=== PATIENT | female | born 1945 | race Caucasian/White ===

== ENCOUNTER 2017-06-11 12:17 | Emergency (ER) | payer OTHER ==
[~2017-06-11] VITALS: Wt 55.6 kg
[~2017-06-11 12:17] MED LIST: ALPR0.254; AMLO-145; ATEN50TA; BENA20TA48; FLUT1DIS21; LEVA15HF6; P EP; SERT-165
--- NOTE | 2017-06-11 15:16 | ERD ---
ER Documentation Chief Complaint Chief Complaint DIZZINESS, VOMITING, NO ABD PAIN, NO HEADACHE, NO CHEST PAIN HPI 71-year-old female, with history of hypertension, presents to the emergency department complaining of 2 days with elevated blood pressure associated with progressive onset of dizziness, nausea and vomiting the blood pressure at home has been. Around 150/100. She has had upper respiratory symptoms for 1 week including runny nose, chest congestion and mild cough and the patient started taking Sudafed 2 days ago. Denies headaches, blurry vision, slurred speech, weakness, no numbness, no tingling. ROS SYSTEMIC symptoms: no fever, chills, no night sweats, no weight loss EYE symptoms: No blurred vision, no eye discharge OTOLARYNGEAL symptoms: No hearing loss. No ear pain, no sore throat CARDIOVASCULAR symptoms: No chest pain or discomfort, no palpitations. PULMONARY symptoms: No dyspnea, mild dry cough, no wheezing. GASTROINTESTINAL symptoms: No abdominal pain, no nausea, no vomiting, no diarrhea MUSCULOSKELETAL symptoms: No arthralgias, no muscle aches. NEUROLOGY symptoms: No confusion, no syncope, no numbness or tingling. SKIN: No rashes Medications Home Meds Active Scripts Neomycin/Polymyxin/Hydrocort* (Cortisporin* Otic) 10 Ml Susp, 4 DROP LEFT EAR QID for 7 Days, EA Prov:FREDY LUNA MD 06/11/17 Reported Medications P-Ephed Hcl/Triprolidine Hcl (Nasal Decongest-Antihist Tab) 1 Tab Tablet 12/20/10 Fluticasone/Salmeterol (Advair 500-50 Diskus) 1 Disk W/Dev Disk.w.dev 12/20/10 Levalbuterol* (Xopenex* HFA) 15 Gm Inha 12/20/10 Sertraline Hcl* (Sertraline Hcl*) 100 Mg Tablet 12/20/10 Alprazolam* (Alprazolam*) 0.25 Mg Tablet 01/26/10 Benazepril Hcl* (Benazepril Hcl*) 20 Mg Tablet 01/26/10 Atenolol* (Atenolol*) 50 Mg Tablet 01/26/10 Amlodipine Besylate* (Amlodipine Besylate*) 5 Mg Tablet 01/26/10 Allergies Allergies: Coded Allergies: No Known Drug Allergies (Verified Allergy, Mild, 08/20/13) PMhx/Soc History of Surgery: Yes (TONSILS, APPI, AND GALLBLADDER REMOVED) Anesthesia Reaction: No Hx Neurological Disorder: No Hx Respiratory Disorders: Yes (seasonal asthma) Hx Cardiac Disorders: Yes (HTN) Hx Psychiatric Problems: No Hx Miscellaneous Medical Probl: Yes (SEASONAL ALLERGIES) Hx Alcohol Use: No Hx Substance Use: No Hx Tobacco Use: No Physical Exam Vitals Vital Signs Date Time Temp Pulse Resp B/P Pulse Ox O2 Delivery O2 Flow Rate FiO2 06/11/17 12:46 96.8 64 18 188/83 98 Physical Exam Patient is in no acute distress, vital signs showed elevated blood pressure. Alert and fully oriented. EYES: PERRLA, EOMI, Sclera and conjunctiva appear normal. EARS: Left ear: Erythematous canal with edema and debris, tympanic membrane intact, contralateral ear normal THROAT: Normal oropharynx. NECK: Supple, No lymphadenopathy. Full ROM without pain or tenderness. HEART: RRR, no rubs, murmurs, clicks or gallops. LUNGS: Clear to auscultation. ABDOMEN: Soft, non-tender without masses or hepatosplenomegaly. EXTREMITIES: No edema bilaterally. BACK: Full ROM, no deformity, normal back exam NEURO: Cranial nerves grossly intact, no motor or sensory deficit Results 24 hrs Current Medications Medications (Trade) Dose Ordered Sig/Richard Route PRN Reason Start Time Stop Time Status Last Admin Dose Admin Ondansetron HCl (Zofran Odt) 4 mg ONCE STAT ODT 06/11/17 15:17 06/11/17 15:19 DC Procedures/MDM 71y/o female patient with history of hypertension, presents to the ED c/o 2 days with nausea, vomiting and left ear pain, associated with elevated blood pressure. Vital signs showed elevated blood pressure, most likely due to the fact that the patient has not been able to keep the medication down due to the nausea and vomiting, also related to Sudafed. Physical exam revealed left ear with otitis externa, otherwise neurovascular exam intact. Differential diagnosis include but not limited to: Side effects of medication, upper respiratory symptoms, otitis, benign vertigo, dehydration, electrolyte disturbance. Less likely arrhythmia, cerebrovascular event, coronary event. Physical examination and clinical presentation consistent most likely with left otitis externa. During the ED course the patient remained stable, no new complaints. The patient received treatment with Zofran presenting overall improvement of the symptoms. Results and clinical impression discussed with patient who agrees with management. The patient is stable to be treated outpatient and will be discharged home with a Rx for Cortisporin otic, some side effects of prescribed medications (headache, rash, nausea, vomiting, diarrhea, drowsiness, habituation , bleeding, hypertension, interactions with other medications) were reviewed. The patient was instructed to follow up with the primary care provider in the next 48h, she states that she has an appointment tomorrow. If symptoms persist , worsen or new symptoms develop, then patient should return to the ED immediately. Instructions explained and given directly by me to the patient in Bengali with acknowledgment and demonstrated understanding. Disclaimer: Inadvertent spelling and grammatical errors are likely due to EHR/ dictation software use and do not reflect on the overall quality of patient care. Also, please note that the electronic time recorded on this note does not necessarily reflect the actual time of the patient encounter. Departure Diagnosis: Primary Impression: Left otitis externa Condition: Stable Additional Instructions: Call your primary care doctor TOMORROW for an appointment during the next 1-2 days. See the doctor sooner or return here if your condition worsens before your appointment time. Thank you very much for allowing us to participate in your care. Your health and safety is our top priority at [facility]. Have prescriptions filled and follow precisely the directions on the label. Follow-up with primary care provider during the next 4 days and bring all the information and medications prescribed. If illness has not improved in 2 days, then make an appointment with primary care provider. If the provider is unavailable, return to the Emergency Department immediately. FREDY LUNA MD Jun 11, 2017 15:16
[2017-06-11] MEDS ORDERED: ONDANSETRON (ODT) 4 MG TAB ODT STA (15:17)
[2017-06-11] MEDS ORDERED: NPH10OT LEFT EAR (15:17)
[2017-06-11 15:46] VITALS: BP 151/72; PULSE 68; RESP 18; TEMP 97.8
== END 2017-06-11 15:46 | disposition home or self-care (01) ==
LOC: FTE 12:17
DX: H60.92 Unspecified otitis externa, left ear (principal); I10 Essential (primary) hypertension
CPT/HCPCS: 99283

== ENCOUNTER 2017-08-18 10:38 | Emergency (ER) | END 2017-08-18 14:29 | disposition home or self-care (01) ==

== ENCOUNTER 2018-10-15 03:20 | Emergency (ER) | payer OTHER, MEDICAID ==
[~2018-10-15] VITALS: Ht 152.4 cm; Wt 59.5 kg
[~2018-10-15 03:20] MED LIST changes: +BENA20TA4; -BENA20TA48; +NPH10OT LEFT EAR; +ONDA4TAB14 PO
[2018-10-15 03:24] VITALS: Ht 152.4 cm; Wt 59.5 kg
[2018-10-15] MEDS ORDERED: SOD CHLORIDE 0.9% 500 ML IV STA (03:34)
[2018-10-15] MEDS ORDERED: ONDANSETRON 4 MG INJ IV STA (03:34)
[2018-10-15] MEDS ORDERED: ONDA4TAB14 PO (05:27)
[2018-10-15 05:52] VITALS: BP 141/86; PULSE 70; RESP 19
--- NOTE | 2018-10-28 00:55 | ERD ---
ER Documentation Chief Complaint Chief Complaint n/v since 10pm last night. patient is prepping for colonoscopy at 9am. HPI This 74-year-old with a nausea vomiting 10 PM last night. Patient is prepping for colonoscopy and was taking GoLYTELY at home. Myrtle nauseous but she drank too quickly. She denies any fevers or chills. She denies any other current complaints. No abdominal pain. ROS All systems reviewed and are negative except as per history of present illness. Medications Home Meds Active Scripts Ondansetron (Ondansetron Odt) 4 Mg Tab.rapdis, 4 MG PO Q6H PRN for NAUSEA AND/OR VOMITING, #10 TAB Prov:NACHO GIBBS 10/15/18 Ondansetron (Ondansetron Odt) 4 Mg Tab.rapdis, 4 MG PO Q6H PRN for NAUSEA AND/OR VOMITING, #30 TAB Prov:SAAD WALDROP MD 08/18/17 Neomycin/Polymyxin/Hydrocort* (Cortisporin* Otic) 10 Ml Susp, 4 DROP LEFT EAR QID for 7 Days, EA Prov:FREDY LUNA MD 06/11/17 Reported Medications P-Ephed Hcl/Triprolidine Hcl (Nasal Decongest-Antihist Tab) 1 Tab Tablet 12/20/10 Fluticasone/Salmeterol (Advair 500-50 Diskus) 1 Disk W/Dev Disk.w.dev 12/20/10 Levalbuterol* (Xopenex* HFA) 15 Gm Inha 12/20/10 Sertraline Hcl* (Sertraline Hcl*) 100 Mg Tablet 12/20/10 Alprazolam* (Alprazolam*) 0.25 Mg Tablet 01/26/10 Benazepril Hcl* (Benazepril Hcl*) 20 Mg Tablet 01/26/10 Atenolol* (Atenolol*) 50 Mg Tablet 01/26/10 Amlodipine Besylate* (Amlodipine Besylate*) 5 Mg Tablet 01/26/10 Allergies Allergies: Coded Allergies: No Known Drug Allergies (Verified Allergy, Mild, 10/15/18) PMhx/Soc History of Surgery: Yes (TONSILS, APPENDECTOMY , GALLBLADDER REMOVED, LEFT OVARY ) Anesthesia Reaction: No Hx Neurological Disorder: No Hx Respiratory Disorders: Yes (seasonal asthma) Hx Cardiac Disorders: Yes (HTN) Hx Psychiatric Problems: No Hx Miscellaneous Medical Probl: Yes (SEASONAL ALLERGIES) Hx Alcohol Use: No Hx Substance Use: No Hx Tobacco Use: No Smoking Status: Never smoker Physical Exam Physical Exam Const: No acute distress Head: Atraumatic Eyes: Normal Conjunctiva ENT: Normal External Ears, Nose and Mouth. Neck: Full range of motion. No meningismus. Resp: Clear to auscultation bilaterally Cardio: Regular rate and rhythm, no murmurs Abd: Soft, non tender, non distended. Normal bowel sounds Skin: No petechiae or rashes Back: No midline or flank tenderness Ext: No cyanosis, or edema Neur: Awake and alert Psych: Normal Mood and Affect Results 24 hrs Laboratory Tests Test 10/15/18 03:58 White Blood Count 4.1 10^3/ul Red Blood Count 4.07 10^6/ul Hemoglobin 11.7 g/dl Hematocrit 34.9 % Mean Corpuscular Volume 85.7 fl Mean Corpuscular Hemoglobin 28.7 pg Mean Corpuscular Hemoglobin Concent 33.5 g/dl Red Cell Distribution Width 13.7 % Platelet Count 174 10^3/UL Mean Platelet Volume 10.8 fl Immature Granulocytes % 0.200 % Neutrophils % 65.3 % Lymphocytes % 23.8 % Monocytes % 8.3 % Eosinophils % 2.2 % Basophils % 0.2 % Nucleated Red Blood Cells % 0.0 /100WBC Immature Granulocytes # 0.010 10^3/ul Neutrophils # 2.7 10^3/ul Lymphocytes # 1.0 10^3/ul Monocytes # 0.3 10^3/ul Eosinophils # 0.1 10^3/ul Basophils # 0.0 10^3/ul Nucleated Red Blood Cells # 0.0 10^3/ul Urine Color YELLOW Urine Clarity SLIGHTLY CLOUDY Urine pH 6.0 Urine Specific [place] 1.016 Urine Ketones NEGATIVE mg/dL Urine Nitrite NEGATIVE mg/dL Urine Bilirubin NEGATIVE mg/dL Urine Urobilinogen NEGATIVE mg/dL Urine Leukocyte Esterase NEGATIVE Sujit/ul Urine Microscopic RBC 3 /HPF Urine Microscopic WBC 3 /HPF Urine Squamous Epithelial Cells FEW /HPF Urine Mucus MODERATE /HPF Urine Hemoglobin NEGATIVE mg/dL Urine Glucose NEGATIVE mg/dL Urine Total Protein NEGATIVE mg/dl Sodium Level 133 mmol/L Potassium Level 3.4 mmol/L Chloride Level 98 mmol/L Carbon Dioxide Level 25 mmol/L Anion Gap 10 Blood Urea Nitrogen 9 mg/dl Creatinine 0.57 mg/dl Est Glomerular Filtrat Rate mL/min mL/min Glucose Level 114 mg/dl Calcium Level 9.5 mg/dl Total Bilirubin 0.5 mg/dl Direct Bilirubin 0.00 mg/dl Indirect Bilirubin 0.5 mg/dl Aspartate Amino Transf (AST/SGOT) 29 IU/L Alanine Aminotransferase (ALT/SGPT) 15 IU/L Alkaline Phosphatase 68 IU/L Total Protein 7.7 g/dl Albumin 4.3 g/dl Globulin 3.40 g/dl Albumin/Globulin Ratio 1.26 Lipase 97 U/L Current Medications Medications Dose Sig/Richard Start Time Status Last (Trade) Ordered Route PRN Stop Time Admin Dose Reason Admin Sodium 500 ml @ Q1H STAT 10/15/18 DC 10/15/18 Chloride 500 mls/hr IV 03:34 10/15/18 04:06 04:33 Ondansetron 4 mg ONCE STAT 10/15/18 DC 10/15/18 HCl (Zofran IV 03:34 10/15/18 04:06 Inj) 03:35 Procedures/MDM Medical decision making: This 73 female became nauseous from drinking too much of the bowel prep. At this point is clinically stable feels much better. She is clinically stable for outpatient management. Patient will be discharged home. Departure Diagnosis: Primary Impression: Nausea and vomiting Vomiting type: unspecified Vomiting Intractability: unspecified Qualified Codes: R11.2 - Nausea with vomiting, unspecified Condition: Stable Patient Instructions: Nausea and Vomiting-Adult NACHO GIBBS Oct 28, 2018 00:55
== END 2018-10-15 06:03 | disposition home or self-care (01) ==
LOC: E/R 03:20
DX: R11.2 Nausea with vomiting, unspecified (principal); I10 Essential (primary) hypertension; J45.909 Unspecified asthma, uncomplicated
CPT/HCPCS: 80053; 81001; 83690; 85025; J2405; J7040; 36415; 81003; 96374